=== PATIENT | male | born 1985 | race Caucasian/White ===

== ENCOUNTER 2016-09-01 16:45 | Emergency (ER) | payer OTHER ==
[~2016-09-01] VITALS: Ht 177.8 cm; Wt 78.0 kg
[2016-09-01 16:46] VITALS: BP 143/78; PULSE 66; RESP 20; TEMP 98.6; O2SAT 99
--- NOTE | 2016-09-01 17:27 | PD ---
Physical Exam Time Seen by Provider: 17:25 Narrative 31yo M c/o R hand laceration from hitting it on the bumper of a car today. Up to date on tetanus. Patient seen in triage. VS reviewed. Awaiting bed placement. Data Data Last Documented VS Vital Signs Date Time Temp Pulse Resp B/P Pulse Ox O2 Delivery O2 Flow Rate FiO2 09/01/16 16:46 98.6 66 20 143/78 99 Room Air MDM Supervised Visit with NARAYAN: Ada Brock Sep 01, 2016 17:27
--- NOTE | 2016-09-01 17:57 | RADRPT ---
EXAM DATE/TIME: 09/01/2016 17:51 [facility] COMPARISON: No previous studies available for comparison. INDICATIONS : Right hand laceration. Patient got hand caught under a bumper. MEDICAL HISTORY : Prior fractures. SURGICAL HISTORY : None. ENCOUNTER: Initial ACUITY: 1 day PAIN SCORE: 5/10 LOCATION: Right Hand. FINDINGS: Laceration on the thumb side is evident without fracture or radiopaque foreign body. CONCLUSION: Laceration without fracture. Ned Coleman MD FACR on September 01, 2016 at 17:53 Board Certified Radiologist. This report was verified electronically.
--- NOTE | 2016-09-01 20:07 | PD ---
HPI Chief Complaint: Laceration/Skin Injury Time Seen by Provider: 20:05 Travel History International Travel<30 days: No Contact w/Intl Traveler<30days: No Traveled to known affect area: No History of Present Illness HPI 31-year-old right-hand dominant male presents to the ED for evaluation of laceration of the right hand. Patient states that he patient states that he cut it on a bumper of a truck at work while tightening down a little ratchet ~ 2 hours before arrival. Endorses mild numbness over the MP joint of the thumb but states that sensation is intact distally. Denies tingling, weakness, limitations of range of motion of the extremity. He is unsure of the date of his last tetanus immunization. [facility] Past Medical History Medical History: Denies Significant Hx Tetanus Vaccination: < 5 Years Past Surgical History Surgical History: No Previous Surgery Social History Alcohol Use: No Tobacco Use: No Substance Use: No Allergies-Medications (Allergen,Severity, Reaction): Coded Allergies: Penicillin (Verified Allergy, Severe, 09/01/16) Reported Meds & Prescriptions Reported Meds & Active Scripts Active Lortab (Hydrocodone-Acetaminophen) 5-325 Mg Tab 1 Tab PO Q6H PRN Review of Systems Except as stated in HPI: all other systems reviewed are Neg Physical Exam Narrative GENERAL: Well-nourished, well-developed white male in no acute distress. SKIN: Focused skin assessment warm/dry. There is a 2 and half centimeter U- shaped laceration at the base of the first metacarpal bone. HEAD: Normocephalic. EYES: No scleral icterus. No injection or drainage. NECK: Supple, trachea midline. No JVD or lymphadenopathy. CARDIOVASCULAR: Regular rate and rhythm without murmurs, gallops, or rubs. RESPIRATORY: Breath sounds equal bilaterally. No accessory muscle use. GASTROINTESTINAL: Abdomen soft, non-tender, nondistended. MUSCULOSKELETAL: No cyanosis, or edema. Focused right upper extremity exam: 2+ radial pulse. Patient maintains strong abduction, adduction, flexion and extension of the thumb, even to resistance. Small area of paresthesia over the MP joint. Sensation intact to light touch distally. BACK: Nontender without obvious deformity. No CVA tenderness. Data Data Last Documented VS Vital Signs Date Time Temp Pulse Resp B/P Pulse Ox O2 Delivery O2 Flow Rate FiO2 09/01/16 16:46 98.6 66 20 143/78 99 Room Air Orders Hand, Complete ([id number]) (09/01/16 17:27) Tetanus/Diphtheria Tox Adult (Tetanus/Di (09/01/16 20:15) Lidocaine 1% Inj (50 Ml) (Xylocaine 1% I (09/01/16 20:15) Splinting (09/01/16 ) Acetamin-Hydrocod 325-5 Mg ([place] 5-325 (09/01/16 21:15) Fiberglass Thumb Spica Adult (09/01/16 ) MDM Medical Decision Making Medical Screen Exam Complete: Yes Emergency Medical Condition: Yes Differential Diagnosis Laceration versus tendon laceration versus fracture versus need for tetanus immunization versus other Narrative Course 31-year-old right-hand dominant male presents to the ED for evaluation of laceration of the right hand. Patient states that he patient states that he cut it on a bumper of a truck at work while tightening down a little ratchet ~ 2 hours before arrival. Endorses mild numbness over the MP joint of the thumb but states that sensation is intact distally. Vitals reviewed. Physical exam reveals a 2.5cm U-shaped laceration at the base of the first metacarpal bone. There is a small area of numbness over the MP joint, but sensation is intact distally. Patient has full, strong ROM of the thumb, even to resistance. Wound exploration reveals transection of the superficial radial nerve and possibly the FPB. I discussed the case with Dr. Smith who feels the patient is safe for discharge with in office follow up on . Laceration repair was performed , see procedure note for details. Tetanus was updated. Patient was prescribed a short course of pain meds, given detailed follow up instructions. He is stable and discharged home. Procedures Procedure Narrative LACERATION LOCATION: Base of right thumb LENGTH: 3 cm NUMBER OF STITCHES/ANASTACIA: 8 REPAIR: The area of the laceration was prepped with Betadine and sterilely draped. The laceration was infiltrated with 1% lidocaine. The wound was copiously irrigated and explored. There is transection of the superficial branch of the radial artery and possible injury of the flexor pollicis brevis. I discussed this case with Dr. Smith who recommended closing the wound and outpatient follow-up. The wound was closed using 4-0 Prolene. This was a single layer repair. A sterile dressing was applied. A thumb spica was applied by the [employer]. Patient tolerated the procedure well. Diagnosis Primary Impression: Laceration of right thumb with tendon involvement Qualified Code: S61.011A - Laceration of right thumb with tendon involvement, initial encounter Additional Impressions: Injury of digital nerve of right thumb, initial encounter Immunization, tetanus toxoid Referrals: Juanis Smith MD Patient Instructions: Care For Your Stitches (ED), General Instructions, Tendon Laceration (ED) Additional Instructions: Rest, hydrate. Do not remove the splint for any reason. If you have an issue with the splint return to the ED for evaluation. Take pain medications as prescribed. Do not drive while taking pain medications. If pain is less than 6 on the pain scale he may take 600 mg of ibuprofen every [address] Juanis Smith's office tomorrow for an appointment on . Follow-up with Dr. Juanis Smith on as discussed. Return to the ED for any urgent or emergent medical condition. Med/Other Pt SpecificInfo: Prescription(s) given Scripts Hydrocodone-Acetaminophen (Lortab)5-325 Mg Tab1 Tab PO Q6H PRN (PAIN) #15 TAB Ref 0 Prov:Kylei Novak DO 09/01/16 Disposition: 01 DISCHARGE HOME Condition: Stable Maritza Leslie Sep 01, 2016 20:07
[2016-09-01] MEDS ORDERED: LIDOCAINE HCL 1% 50 ML VIAL INFIL ONE (20:15)
[2016-09-01] MEDS ORDERED: TETANUS/DIPHTHERIA TOXOID ADULT 0.5 ML VIAL IM ONE (20:15)
[2016-09-01] MEDS ORDERED: HYDR-3533 PO (21:13)
[2016-09-01] MEDS ORDERED: ACETAMINOPHEN/HYDROcodone 325 MG/5 MG TAB PO ONE (21:15)
== END 2016-09-01 22:04 | disposition home or self-care (01) ==
LOC: NEPD 16:45
DX: S61.411A Laceration without foreign body of right hand, initial encounter (principal); Z23 Encounter for immunization; W45.8XXA Other foreign body or object entering through skin, initial encounter
CPT/HCPCS: 12002; 73130; 90471; 90714; 99283; L3808

== ENCOUNTER → 2016-09-05 | Day surgery (SDC) | payer OTHER ==
[~2016-09-05] MED LIST: CHLORHEXIDINE GLUCONATE 2 % 1 PACK (2 CLOTHS) TOPICAL PRN; HYDR-3533 PO; INSULIN HUMAN REGULAR 1,000 UNITS/10 ML VIAL SQ PRN; LACTATED RINGER'S 1000 ML INJ 500 ML IV SCH; LACTATED RINGER'S 1000 ML IV PRN; METOPROLOL TARTRATE 25 MG TAB PO PRN; POVIDONE IODINE 5% (ANTISEPSIS KIT) 4 APPLICATIONS EACH NARE PRN; SODIUM CHLORID 0.9% 500 ML IV PRN
== END | disposition home or self-care (01) ==
LOC: HSDC 14:44
PROVIDERS: ATTEND Orthopaedic Surgery
DX: S66.221A Laceration of extensor muscle, fascia and tendon of right thumb at wrist and hand level, initial encounter (principal); Z53.9 Procedure and treatment not carried out, unspecified reason

== ENCOUNTER 2017-02-27 11:54 | Emergency (ER) | payer SELFPAY ==
[~2017-02-27] VITALS: Ht 177.8 cm; Wt 78.0 kg
[~2017-02-27 11:54] MED LIST changes: -CHLORHEXIDINE GLUCONATE 2 % 1 PACK (2 CLOTHS) TOPICAL PRN; -INSULIN HUMAN REGULAR 1,000 UNITS/10 ML VIAL SQ PRN; -LACTATED RINGER'S 1000 ML INJ 500 ML IV SCH; -LACTATED RINGER'S 1000 ML IV PRN; -METOPROLOL TARTRATE 25 MG TAB PO PRN; -POVIDONE IODINE 5% (ANTISEPSIS KIT) 4 APPLICATIONS EACH NARE PRN; -SODIUM CHLORID 0.9% 500 ML IV PRN
[2017-02-27 11:56] VITALS: BP 148/66; PULSE 63; RESP 12; TEMP 98.2; O2SAT 99
[2017-02-27] MEDS ORDERED: MELOXICAM 15 MG TAB PO ONE (12:45)
[2017-02-27] MEDS ORDERED: CLINDAMYCIN 150 MG CAP PO ONE (12:45)
[2017-02-27] MEDS ORDERED: MOBI15TA PO (12:50)
[2017-02-27] MEDS ORDERED: CLIN150C14 PO (12:50)
[2017-02-27] MEDS ORDERED: BACT800T5 PO (12:50)
--- NOTE | 2017-02-27 12:51 | PD ---
HPI Chief Complaint: Bite or Sting Time Seen by Provider: 12:38 Travel History International Travel<30 days: No Contact w/Intl Traveler<30days: No Traveled to known affect area: No History of Present Illness HPI 31-year-old male complains of left knee pain. Patient states that he has infected lesion on the left knee. Patient states that he noticed this morning. Patient states that he had a small amount of pus coming from the lesions this morning. Patient denies any headache. Patient denies any chest pain or shortness of breath. Patient denies abdominal pain. Patient denies any fever chills. Patient states that he is up-to-date with TD booster. PFSH Past Medical History Medical History: Denies Significant Hx Diminished Hearing: No Influenza Vaccination: Yes Social History Alcohol Use: Yes (OCCASIONAL) Tobacco Use: No Substance Use: No Allergies-Medications (Allergen,Severity, Reaction): Coded Allergies: penicillin G (Unverified Allergy, Severe, 02/27/17) Reported Meds & Prescriptions Reported Meds & Active Scripts Active Lortab (Hydrocodone-Acetaminophen) 5-325 Mg Tab 1 Tab PO Q6H PRN Review of Systems General / Constitutional: No: Fever Eyes: No: Visual changes HENT: No: Headaches Cardiovascular: No: Chest Pain or Discomfort Respiratory: No: Shortness of Breath Gastrointestinal: No: Abdominal Pain Genitourinary: No: Dysuria Musculoskeletal: Positive: Pain Skin: No Rash Neurologic: No: Weakness Psychiatric: No: Depression Endocrine: No: Polydipsia Hematologic/Lymphatic: No: Easy Bruising Physical Exam Narrative GENERAL: Well-nourished, well-developed patient. SKIN: Focused skin assessment warm/dry. HEAD: Normocephalic. EYES: No scleral icterus. No injection or drainage. NECK: Supple, trachea midline. No JVD or lymphadenopathy. CARDIOVASCULAR: Regular rate and rhythm without murmurs, gallops, or rubs. RESPIRATORY: Breath sounds equal bilaterally. No accessory muscle use. GASTROINTESTINAL: Abdomen soft, non-tender, nondistended. MUSCULOSKELETAL: No cyanosis, or edema. BACK: Nontender without obvious deformity. No CVA tenderness. Patient has a papular lesion medial aspect of the left knee with some healing wound prepatellar area of the left knee. Small area of redness swelling associated with the papular lesion. No induration and no discharge. Full range of motion the knee joint. No effusion noted on the knee joint. Data Data Last Documented VS Vital Signs Date Time Temp Pulse Resp B/P (MAP) Pulse Ox O2 Delivery O2 Flow Rate FiO2 02/27/17 11:56 98.2 63 12 148/66 (93) 99 Orders Orders Meloxicam (Mobic) (02/27/17 12:45) Clindamycin (Cleocin) (02/27/17 12:45) MDM Medical Decision Making Medical Screen Exam Complete: Yes Emergency Medical Condition: Yes Differential Diagnosis Differential diagnosis including folliculitis, cellulitis, abscess. Narrative Course 31-year-old male with infected lesion left knee. No evidence of joint involvement. Mobic 15 mg by mouth given. Clindamycin 300 mg by mouth given. Diagnosis Primary Impression: Cellulitis of left knee Patient Instructions: General Instructions Additional Instructions: Take medications as directed. Follow-up with local physician. Return if worse. Return if increasing redness swelling. Med/Other Pt SpecificInfo: Prescription(s) given Scripts Meloxicam (Mobic) 15 Mg Tab 15 MG PO DAILY for Pain, #14 TAB 0 Refills Prov: Stanley Alcazar MD 02/27/17 Sulfamethoxazole-Trimethoprim (Bactrim DS) 800-160 Mg Tab 1 TAB PO BID for Infection, #20 TAB 0 Refills Prov: Stanley Alcazar MD 02/27/17 Clindamycin (Clindamycin) 150 Mg Cap 300 MG PO QID for Infection, #80 CAP 0 Refills Prov: Stanley Alcazar MD 02/27/17 Disposition: 01 DISCHARGE HOME Condition: Stable Stanley Alcazar MD Feb 27, 2017 12:51
== END 2017-02-27 13:27 | disposition home or self-care (01) ==
LOC: NEPD 11:54
DX: L03.116 Cellulitis of left lower limb (principal)
CPT/HCPCS: 99284